=== PATIENT | female | born 1990 | race Caucasian/White ===

== ENCOUNTER → 2016-07-08 | Outpatient (CLI) | payer OTHER ==
[~2016-07-08] MED LIST: ADVIL200 MG PO; AMOXICILLIN 8751 TAB PO; ASPI325T6 PO; ASPIRIN 32325 MG/TAB PO; NORCO 325 MG-7.1 TAB PO; ROCEPHIN 2GM VIAL21 IJ; TYLENOL 500MG500 MG PO
== END ==
LOC: COL.RAD 14:23 → EDSEX 14:23 → COL.RAD 14:45
DX: M25.571 Pain in right ankle and joints of right foot (principal); Q86.8 Other congenital malformation syndromes due to known exogenous causes; M25.471 Effusion, right ankle; G57.51 Tarsal tunnel syndrome, right lower limb; S93.411A Sprain of calcaneofibular ligament of right ankle, initial encounter; X58.XXXA Exposure to other specified factors, initial encounter

== ENCOUNTER → 2016-07-15 | Outpatient (CLI) | payer OTHER | LOC: COL.RAD 12:53 | DX: M25.571 Pain in right ankle and joints of right foot (principal) | CPT/HCPCS: J3301; Q9967 ==

== ENCOUNTER → 2016-10-02 | Outpatient (CLI) | payer OTHER | LOC: COL.RAD 07:33 | DX: M25.871 Other specified joint disorders, right ankle and foot (principal); M25.571 Pain in right ankle and joints of right foot | CPT/HCPCS: J3301; Q9967 ==

== ENCOUNTER 2016-10-28 08:00 | Day surgery (SDC) | payer OTHER ==
[~2016-10-28] VITALS: Ht 167.6 cm; Wt 149.4 kg
[2016-10-28] MEDS ORDERED: ADVIL200 MG PO (08:40)
[2016-10-28] MEDS ORDERED: TYLENOL 500MG500 MG PO (08:40)
[2016-10-28 08:41] VITALS: BP 141/64; BP 153/104; PULSE 76; TEMP 98
[2016-10-28 12:35] VITALS: BP 124/65; PULSE 65; TEMP 97.4
[2016-10-28 12:50] VITALS: BP 122/81; PULSE 64
[2016-10-28 13:05] VITALS: BP 98/69; PULSE 69
[2016-10-28 13:20] VITALS: BP 112/84; PULSE 60
[2016-10-28] MEDS ORDERED: ASPIRIN 32325 MG/TAB PO (13:47)
[2016-10-28] MEDS ORDERED: NORCO 325 MG-7.1 TAB PO (13:47)
[2016-10-28 13:50] VITALS: BP 122/69; PULSE 75
== END 2016-10-28 15:35 | disposition home or self-care (01) ==
LOC: SDCO 08:00
DX: M25.871 Other specified joint disorders, right ankle and foot (principal); M19.071 Primary osteoarthritis, right ankle and foot; K21.9 Gastro-esophageal reflux disease without esophagitis; E66.01 Morbid (severe) obesity due to excess calories; F17.210 Nicotine dependence, cigarettes, uncomplicated; Z90.49 Acquired absence of other specified parts of digestive tract; Z68.43 Body mass index [BMI] 50.0-59.9, adult; M79.89 Other specified soft tissue disorders
CPT/HCPCS: J0690; J1100; J2250; J2405; J2704; J3010; J7120

== ENCOUNTER 2016-11-16 10:00 | Inpatient (IN) | payer OTHER ==
[~2016-11-16] VITALS: Ht 170.2 cm; Wt 155.0 kg
[~2016-11-16 10:00] MED LIST changes: -AMOXICILLIN 8751 TAB PO; -ASPI325T6 PO; -CEPHALEXIN500 M1 PO; -MULTI VITAMINS1 TAB PO; -PRILOSEC 20MG20 MG PO; -PROBIOTIC FORMU1 CAP PO; -ROCEPHIN 2GM VIAL21 IJ; -XARELTO15 MG PO; -ZESTRIL 20MG TA20 MG PO
[2016-11-16 10:31] VITALS: BP 170/96; PULSE 110; TEMP 99.1
[2016-11-16 12:34] VITALS: BP 168/63; PULSE 58; TEMP 97.7
[2016-11-16 12:37] LABS: CREATININE, serum 0.59 mg/dL (0.52-1.25)
[2016-11-16 12:55] LABS: HEMATOCRIT 38.9 % (37.0-47.0); HEMOGLOBIN 12.7 g/dl (12.5-16.0); MEAN CELL VOLUME 88 fl (80.0-100.0); MEAN CORPUSCULAR HEMOGLOBIN 29 pg (27.0-31.0); MEAN CORPUSCULAR HGB CONC 33 g/dl (33.0-37.0); PLATELET COUNT 213 K/mm3 (130-400); RED BLOOD COUNT 4.42 M/mm3 (4.10-5.30); REDCELL DISTRIBUTION WIDTH-CV 13.2 % (11.5-14.5); WHITE BLOOD COUNT 6.4 K/mm3 (4.8-10.8)
[2016-11-16 13:05] LABS: ADJUSTED CALCIUM 9.3 mg/dL (8.4-10.2); ALBUMIN 3.4 gm/dL (3.5-5.0); BILIRUBIN,TOTAL 0.4 mg/dL (0.0-1.0); C-REACTIVE PROTEIN 6.1 mg/dL (0.0-0.9); CALCIUM 8.8 mg/dL (8.4-10.2); POTASSIUM 4.2 mmol/L (3.4-5.0); TOTAL PROTEIN 6.7 gm/dL (6.4-8.2)
[2016-11-16 13:39] LABS: ERYTHROCYTE SEDIMENTATION RATE 18 mm/hr (0-20)
[2016-11-16 14:30] VITALS: BP 151/74; PULSE 92; TEMP 97.9
[2016-11-16 18:00] VITALS: BP 93/66; TEMP 98
[2016-11-16 22:10] VITALS: BP 135/80; PULSE 96; TEMP 98.4
[2016-11-17] VITALS (11 sets, daily range): BP systolic 132–152; BP diastolic 64–86; PULSE 78–94; TEMP 98–98.6
[2016-11-17 18:36] LABS: PH 5 (5-8); URINE APPEARANCE Hazy; URINE BACTERIA Rare /hpf; URINE BILIRUBIN Negative (NEGATIVE); URINE BLOOD Negative (NEGATIVE); URINE COLOR Yellow; URINE GLUCOSE Negative (NEGATIVE); URINE KETONE Negative (NEGATIVE); URINE RBC 0-2 /hpf; URINE UROBILINOGEN Negative (NEGATIVE); URINE WBC 0-2 /hpf
[2016-11-18 02:31] VITALS: BP 136/77; PULSE 86; TEMP 98.4
[2016-11-18 05:52] VITALS: BP 130/74; PULSE 101; TEMP 98.2
[2016-11-18 07:08] LABS: BASO % 0.4 % (0.0-2.0); EOS # 0.2 (0.0-0.7); EOS % 2.2 % (0-4.0); GRAN # 4.7 (1.4-6.5); GRAN % 63.4 % (42.2-75.2); HEMATOCRIT 37.2 % (37.0-47.0); LYMPH # 1.9 (1.2-3.4); LYMPH % 26.1 % (20.0-51.0); MEAN CELL VOLUME 90 fl (80.0-100.0); MEAN CORPUSCULAR HEMOGLOBIN 29 pg (27.0-31.0); MEAN CORPUSCULAR HGB CONC 32 g/dl (33.0-37.0); MEAN PLATELET VOLUME 10.8 fl (7.4-10.4); MONO # 0.6 (0.1-0.6); MONO % 7.4 % (1.7-9.3); PLATELET COUNT 191 K/mm3 (130-400); RED BLOOD COUNT 4.14 M/mm3 (4.10-5.30); REDCELL DISTRIBUTION WIDTH-CV 13.2 % (11.5-14.5); WHITE BLOOD COUNT 7.4 K/mm3 (4.8-10.8)
[2016-11-18 09:14] VITALS: BP 99/78; PULSE 111; TEMP 98.3
[2016-11-18 14:24] VITALS: BP 147/76; PULSE 101; TEMP 98.1
[2016-11-18 18:04] VITALS: BP 147/79; PULSE 96; TEMP 98.6
[2016-11-18 22:09] VITALS: BP 137/80; PULSE 103; TEMP 98.2
[2016-11-19 05:08] VITALS: BP 113/87; PULSE 101; TEMP 98.6
[2016-11-19] MEDS ORDERED: AMOXICILLIN 8751 TAB PO (08:49)
[2016-11-19] MEDS ORDERED: ASPI325T6 PO (08:49)
[2016-11-19] MEDS ORDERED: NORCO 325 MG-7.1 TAB PO (08:50)
[2016-11-19 09:27] VITALS: BP 138/99; PULSE 94; TEMP 98.4
[2016-11-19] MEDS ORDERED: ROCEPHIN 2GM VIAL21 IJ (11:02)
[2016-11-19 13:17] VITALS: BP 147/90; PULSE 90; TEMP 97.8
== END 2016-11-19 14:40 | disposition home or self-care (01) | DRG 863 ==
LOC: SURG 10:17
PROVIDERS: Family Medicine; Orthopaedic Surgery
PROC: 02HV33Z Insertion of Infusion Device into Superior Vena Cava, Percutaneous Approach (ICD-10-PCS; 2016-11-16)
PROC: 0HDNXZZ Extraction of Left Foot Skin, External Approach (ICD-10-PCS; 2016-11-17)
PROC: 0HQNXZZ Repair Left Foot Skin, External Approach (ICD-10-PCS; principal; 2016-11-17 14:33)
DX: T81.4XXA Infection following a procedure, initial encounter (principal); T81.31XA Disruption of external operation (surgical) wound, not elsewhere classified, initial encounter; Z68.42 Body mass index [BMI] 45.0-49.9, adult; E66.01 Morbid (severe) obesity due to excess calories; F17.210 Nicotine dependence, cigarettes, uncomplicated; B96.20 Unspecified Escherichia coli [E. coli] as the cause of diseases classified elsewhere; B95.61 Methicillin susceptible Staphylococcus aureus infection as the cause of diseases classified elsewhere
CPT/HCPCS: 99223; 99232-AI; 99239; A9284; C1751; J0360; J0690; J0696; J1170; J1644; J2175; J2405; J2543; J2704; J3010; J3370; J7040; J7050; J7120

== ENCOUNTER → 2016-11-16 | Outpatient (CLI) | payer OTHER ==
[~2016-11-16] MED LIST changes: +CEPHALEXIN500 M1 PO; +MULTI VITAMINS1 TAB PO; +PRILOSEC 20MG20 MG PO; +PROBIOTIC FORMU1 CAP PO; +XARELTO15 MG PO; +ZESTRIL 20MG TA20 MG PO
== END ==
LOC: ZCOL.LAB 11:59
DX: Z01.89 Encounter for other specified special examinations (principal)

== ENCOUNTER → 2016-11-24 | Outpatient (REF) ==
[~2016-11-24] MED LIST changes: +AMOXICILLIN 8751 TAB PO; +ASPI325T6 PO; +CEPHALEXIN500 M1 PO; +MULTI VITAMINS1 TAB PO; +PRILOSEC 20MG20 MG PO; +PROBIOTIC FORMU1 CAP PO; +ROCEPHIN 2GM VIAL21 IJ; +XARELTO15 MG PO; +ZESTRIL 20MG TA20 MG PO
== END ==
LOC: ZAIV 06:20
DX: Z02.89 Encounter for other administrative examinations (principal)

== ENCOUNTER 2016-12-18 12:49 | Emergency (ER) | payer OTHER ==
[~2016-12-18] VITALS: Ht 167.6 cm; Wt 158.2 kg
[~2016-12-18 12:49] MED LIST changes: -CEPHALEXIN500 M1 PO; -MULTI VITAMINS1 TAB PO; -PRILOSEC 20MG20 MG PO; -PROBIOTIC FORMU1 CAP PO; -XARELTO15 MG PO; -ZESTRIL 20MG TA20 MG PO
[2016-12-18 12:51] VITALS: TEMP 99
[2016-12-18] MEDS ORDERED: ZESTRIL 20MG TA20 MG PO (13:56)
[2016-12-18] MEDS ORDERED: MULTI VITAMINS1 TAB PO (13:57)
[2016-12-18] MEDS ORDERED: XARELTO15 MG PO (16:23)
[2016-12-18 17:00] VITALS: BP 121/98; PULSE 119
== END 2016-12-18 17:00 | disposition home or self-care (01) ==
LOC: COL.ER 12:49
DX: I82.621 Acute embolism and thrombosis of deep veins of right upper extremity (principal); I47.1 Supraventricular tachycardia; I10 Essential (primary) hypertension; Z45.2 Encounter for adjustment and management of vascular access device
CPT/HCPCS: J1650

== ENCOUNTER 2016-12-20 12:09 | Emergency (ER) | payer OTHER ==
[~2016-12-20] VITALS: Ht 170.2 cm; Wt 158.2 kg
[~2016-12-20 12:09] MED LIST changes: +MULTI VITAMINS1 TAB PO; +XARELTO15 MG PO; +ZESTRIL 20MG TA20 MG PO
[2016-12-20 12:12] VITALS: BP 151/80; TEMP 98.3
[2016-12-20] MEDS ORDERED: CEPHALEXIN500 M1 PO (12:42)
[2016-12-20] MEDS ORDERED: PROBIOTIC FORMU1 CAP PO (12:45)
[2016-12-20 13:12] LABS: BASO % 0.3 % (0.0-2.0); EOS # 0.3 (0.0-0.7); GRAN # 4.3 (1.4-6.5); GRAN % 48.9 % (42.2-75.2); HEMATOCRIT 38.9 % (37.0-47.0); HEMOGLOBIN 12.9 g/dl (12.5-16.0); LYMPH # 3.5 (1.2-3.4); LYMPH % 39.2 % (20.0-51.0); MEAN CELL VOLUME 88 fl (80.0-100.0); MEAN CORPUSCULAR HEMOGLOBIN 29 pg (27.0-31.0); MEAN CORPUSCULAR HGB CONC 33 g/dl (33.0-37.0); MEAN PLATELET VOLUME 10.9 fl (7.4-10.4); MONO # 0.7 (0.1-0.6); PLATELET COUNT 202 K/mm3 (130-400); RED BLOOD COUNT 4.42 M/mm3 (4.10-5.30); REDCELL DISTRIBUTION WIDTH-CV 13.4 % (11.5-14.5); WHITE BLOOD COUNT 8.8 K/mm3 (4.8-10.8)
[2016-12-20 13:19] LABS: INR 1.5 (0.8-3.0); PROTHROMBIN TIME 16.3 SECONDS (9.7-12.8)
[2016-12-20 13:22] LABS: CALCIUM 9.1 mg/dL (8.4-10.2); CREATININE, serum 0.63 mg/dL (0.52-1.25); POTASSIUM 4.2 mmol/L (3.4-5.0)
[2016-12-20] MEDS ORDERED: PRILOSEC 20MG20 MG PO (13:58)
[2016-12-20 14:07] VITALS: PULSE 103
== END 2016-12-20 14:07 | disposition home or self-care (01) ==
LOC: COL.ER 12:09
PROVIDERS: Emergency Medicine
DX: I82.621 Acute embolism and thrombosis of deep veins of right upper extremity (principal); R06.02 Shortness of breath; Z79.01 Long term (current) use of anticoagulants
CPT/HCPCS: Q9967